=== PATIENT | male | born 1980 | race Caucasian/White ===

== ENCOUNTER 2016-08-16 12:36 | Emergency (ER) | payer OTHER ==
[~2016-08-16] VITALS: Ht 193 cm; Wt 100.0 kg
[2016-08-16 12:47] VITALS: BP 123/71; PULSE 73; RESP 20; O2SAT 97
[2016-08-16 13:31] LABS: BASOPHILS % (AUTO) 0.5 % (0-3); EOSINOPHILS % (AUTO) 3.8 % (0-5); MONOCYTES % (AUTO) 13.5 % (4-12); Mean Corpuscular Hemoglobin 27.3 pg (27.0-35.0); Mean Corpuscular Volume 80.3 fL (81-100); NEUTROPHILS % (AUTO) 63.4 % (40-74); Platelet Count 194 bil/L (150-400)
[2016-08-16 13:51] LABS: Magnesium 1.9 mg/dL (1.6-2.6)
[2016-08-16 15:12] VITALS: BP 118/70; PULSE 72; RESP 20; O2SAT 97
--- NOTE | 2016-08-16 15:15 | ED.REPORT ---
HPI-Abd Pain M Under 40 Date of Service Aug 16, 2016 ED Provider: Angelo Lorenz MD Aden is an otherwise healthy 35-year-old male presenting with a chief complaint of stomach pain. He reports a one-year history of intermittent pain in his epigastric region that radiates into his back and chest. He describes the pain as twisting and severe. Pain typically occurs 1-2 hours after eating but sometimes later. He also reports that the pain has awoken him from sleep at night. Admits chewing tobacco and swallowing spit. Denies vomiting, hematemesis, diarrhea, hematochezia, melena, cardiac chest pain, palpitations or difficulty breathing. Nursing Notes Stated Complaint: STOMACH PAIN Chief Complaint: Male Abdominal Pain Nursing Notes Reviewed: Yes Allergies: Coded Allergies: No Known Allergies (Unverified , 08/16/16) Scheduled Esomeprazole Magnesium (Nexium) 20 Mg Capsule.dr 20 MG PO DAILY General Time Seen by MD: 15:13 Chief Complaint Abdominal pain Risk Factors CAD Risk Stratification No Amphetamine, No Cocaine, No Diabetes mellitus, No Family history, No Hyperlipidemia, No Hypertension, No Known CAD, No Smoking No risk factors Past Medical History Past Medical History Notes: Denies Review of Systems Review of Systems Note: Negative unless stated otherwise in history of present illness Physical Exam General: Extremely well appearing, well developed, well nourished, no acute distress. Head: Atraumatic, normocephalic. Eyes: No scleral icterus or injection. No discharge. Vision grossly intact. ENT: Voice clear, hearing grossly intact. Respiratory: Regular rate and rhythm. No respiratory distress. No increased work of breathing, speaks in complete sentences. Cardiovascular: Regular rate and rhythm, without murmur, gallop or rub. No pedal edema. Gastrointestinal: Abdomen flat and non-tender without guarding or rebound. Bowel sounds hypoactive. Skin: Warm and dry. Neurological: Grossly nonfocal. Psychological: Alert and oriented. Speech appropriate, linear and logical. Behavior appropriate. Initial Vital Signs Vital Signs (First) Date Time Temp Pulse Resp B/P Pulse Ox O2 Delivery O2 Flow Rate FiO2 08/16/16 12:47 36.4 73 20 123/71 97 Room Air Initial VS: Reviewed, Vital signs normal Interpretation & Diagnostics Lab Results Interpretation Result Diagram: 08/16/16 1310 08/16/16 1310 Test 08/16/16 13:10 08/16/16 16:36 White Blood Count 4.0th/mm3 (3.8-10.1) Red Blood Count 5.39mil/mm3 (4.40-5.80) Hemoglobin 14.7g/dL (13.8-17.2) Hematocrit 43.3% (41.0-50.0) Mean Corpuscular Volume 80.3fL (81-100) Mean Corpuscular Hemoglobin 27.3pg (27.0-35.0) Mean Corpuscular Hemoglobin Concent 33.9% (32.0-37.0) Red Cell Distribution Width 13.8% (12.3-15.4) Platelet Count 194bil/L (150-400) Neutrophils (%) (Auto) 63.4% (40-74) Lymphocytes (%) (Auto) 18.3% (14-46) Monocytes (%) (Auto) 13.5% (4-12) Eosinophils (%) (Auto) 3.8% (0-5) Basophils (%) (Auto) 0.5% (0-3) Sodium Level 138mEq/L (134-144) Potassium Level 4.3mEq/L (3.5-5.2) Chloride Level 100mEq/L (97-108) Carbon Dioxide Level 27mmol/L (18-29) Blood Urea Nitrogen 15mg/dL (6-20) Creatinine 0.84mg/dL (0.76-1.27) Estimat Glomerular Filtration Rate 112mL/min (>59) Glucose Level 104mg/dL (60-99) Calcium Level 9.1mg/dL (8.5-10.1) Magnesium Level 1.9mg/dL (1.6-2.6) Total Bilirubin 0.5mg/dL (0.0-1.2) Aspartate Amino Transf (AST/SGOT) 26U/L (0-50) Alanine Aminotransferase (ALT/SGPT) 33U/L (0-44) Alkaline Phosphatase 99U/L (25-150) Total Protein 6.9g/dL (6.4-8.4) Albumin 4.3g/dL (3.4-5.0) Lipase 28U/L (13-60) Hold Blanco Top Tube Received (Received) Hold Urine Received (Received) Re-Eval/Medical Decision Med Decision/Clinical Course Otherwise healthy 35-year-old male presents with a long history of intermittent epigastric pain. He states that for the last year so it has occurred roughly weekly per describes the pain as twisting which radiates through to his back and up into his chest. It tends to happen within 1-2 hours of eating typically. He reports it has been more common in the last week. Urinalysis, CBC and CMP are essentially normal. Physical is benign with no abdominal tenderness. I think is unlikely this is caused by cholecystitis, pancreatitis, bleeding ulcer, diverticulitis. Review of risk factors leads me to believe cardiac etiology is extremely unlikely. I think this is most likely an ulcer, and provided a referral to gastroenterology as well as a prescription for a PPI. Advised Tums for flareups. Provided return precautions. Discussed this with the patient who understands and is comfortable with the plan Patient Discharge & Departure Primary Impression: Epigastric pain Disposition: Home Discharge Condition All VS Reviewed: Yes Condition: Stable Patient Instructions: Peptic Ulcer (ED) Additional Instructions: Evaluation in the emergency department for stomach pain. History and physical along with blood tests and urinalysis are reassuring that this is unlikely to be a dangerous condition such as a bleeding ulcer, cholecystitis, pancreatitis or heart condition. At this point I am suspicious that this may be an ulcer. I will refer you to predatory animal exterminator for further assessment. In the meantime I will also prescribe Nexium to be taken once a day. This should reduce the acid in your stomach and reduce the severity of her flareups. Recommend Tums for when you have flareups. Contacte the predatory animal exterminator tomorrow to arrange follow-up in the next week or so. Return to emergency department for new or worsening symptoms including black/tarry stools, vomiting blood, increasing pain. Referrals: Janusz Leal MD EDSupervising Provider for APC: Angelo Lorenz MD Attending Statement Attending attestation: I saw this patient in conjunction with Sam Medley PA-C. I agree with the workup, evaluation, treatment and disposition. Angelo Lorenz MD copies to: Jayson Bae MD; Janusz Leal MD, Beck O MD Aug 16, 2016 15:15 Sam Medley PA-C Aug 16, 2016 17:03
[2016-08-16] MEDS ORDERED: ESOM20CA28 PO (17:05)
[2016-08-16 17:29] VITALS: BP 114/75; PULSE 91; RESP 16; O2SAT 98
[2016-09-16] MEDS ORDERED: SERT20OR6 PO (16:44)
[2016-11-03] MEDS ORDERED: SERT50TA9 PO (16:56)
== END 2016-08-16 17:30 | disposition home or self-care (01) ==
LOC: SED 12:36
DX: R10.13 Epigastric pain (principal); F17.220 Nicotine dependence, chewing tobacco, uncomplicated

== ENCOUNTER 2016-09-17 09:08 | Day surgery (SDC) | payer OTHER ==
[~2016-09-17] VITALS: Ht 193 cm; Wt 100.0 kg
[~2016-09-17 09:08] MED LIST: 0.9% Sodium Chloride 1,000 ML IV SCH; ESOM20CA28 PO; SERT20OR6 PO; Sodium Chloride LOK Flush 10 mL Syringe IV PRN; fentaNYL-PF 50 mCg/mL 2 mL Inj IVPUSH PRN
[2016-09-17 09:40] VITALS: BP 122/72; PULSE 63; RESP 14; O2SAT 97
[2016-09-17 10:34] VITALS: BP 109/68; PULSE 63; RESP 14; O2SAT 96
[2016-09-17 10:48] VITALS: BP 105/66; PULSE 65; RESP 16; O2SAT 98
[2016-09-17 10:57] VITALS: BP 118/81; PULSE 64; RESP 16; O2SAT 100
--- NOTE | 2016-09-17 16:47 | ENDO ---
[address] [address] ENDOSCOPY PROCEDURE PATIENT: KIMBERLY WING : 1980 MR#: [id number] ADMIT: 09/17/2016 JOB ID: [id number] PROCEDURE: Esophagogastroduodenoscopy. INDICATION: Epigastric pain. The patient's ASA classification is I. Mallampati score is I. MEDICATIONS: Versed 5 mg, fentanyl 100 mcg. INSTRUMENT USED: GIF-H190. PROCEDURE DETAILS: After informed consent was obtained, the patient was brought to the GI suite, where he was placed on oxygen via nasal cannula and monitored with continuous pulse oximeter, telemetry, and blood pressure monitoring. A time-out was performed. Then, he was placed in a left lateral decubitus position and medications were administered for sedation. A bite block was placed. The standard EGD scope was inserted through the bite block and advanced under direct visualization to second portion of the duodenum without difficulty. FINDINGS: 1. Normal-appearing duodenal bulb, first and second portion. Multiple random biopsies were obtained. 2. Normal-appearing pylorus, antrum, and gastric body. 3. Retroflexed views in the gastric body revealed a normal-appearing cardia and fundus. 4. Multiple random biopsies were obtained throughout the antrum and body of stomach. 5. Normal-appearing GE junction with a regular Z-line at 47 cm. 6. Normal-appearing esophagus. IMPRESSION: Normal esophagogastroduodenoscopy exam to second portion of duodenum. No findings to explain patient's epigastric pain. RECOMMENDATIONS: 1. Ultrasound of the abdomen versus cross-sectional imaging. 2. Recommend continuing empiric PPI or an H2 amara daily. COMPLICATIONS: None. ESTIMATED BLOOD LOSS: Less than 5 mL.
--- NOTE | 2016-09-20 16:04 | PATH ---
SURGICAL PATHOLOGY Attending Physician:Saran Brown CASE STATUS: Signed Out PATIENT NAME: KIMBERLY WING PID: [id number] : 1980 DATE COLLECTED:09/17/2016 17:11 SPECIMEN: 1: Duodenum, Biopsy 2: Stomach, Polyp, Biopsy CLINICAL HISTORY: 1). DUODENAL BX 2). GASTRIC BX FINAL DIAGNOSIS: 1.DUODENUM, BIOPSY: DUODENAL MUCOSA WITH NO DIAGNOSTIC ABNORMALITY. Negative for active inflammation, features of sprue, dysplasia, and malignancy. 2.STOMACH, BIOPSIES: ANTRAL AND BODY-TYPE MUCOSA WITH NO DIAGNOSTIC ABNORMALITY. Negative for Helicobacter organisms. Negative for intestinal metaplasia. Negative for dysplasia and malignancy. ICD10 CODE R10.9 GROSS DESCRIPTION: Received are two formalin-filled containers, both labeled with the patient' s name: 1. Received in formalin, labeled with the patient' s name and "1. Duodenum BX", are three fragments of collado, soft tissue ranging in size from 0.1 x 0.1 x 0.1 cm to 0.2 x 0.1 x 0.1 cm. All fragments are totally submitted in cassette 1A. 2. Received in formalin, labeled with the patient' s name and "2. Gastric BX", are three fragments of collado, soft tissue ranging in size from 0.1 x 0.1 x 0.1 cm to 0.3 x 0.2 x 0.2 cm. All fragments are totally submitted in cassette 2A. ([id number]) MICRO DESCRIPTION: See diagnosis. ICD-9 CODES: CPT CODES: 1: 95872 2: 20311 Electronically Signed Out Marika Michel MD [facility] [address], [place] [address] Technical component performed at [facility], [address], [place], [address]
[2016-11-03] MEDS ORDERED: SERT50TA9 PO (16:56)
== END 2016-09-17 23:59 | disposition home or self-care (01) ==
LOC: END 09:08
PROVIDERS: ATTEND Internal Medicine Gastroenterology
DX: K22.4 Dyskinesia of esophagus (principal); R10.13 Epigastric pain; F17.220 Nicotine dependence, chewing tobacco, uncomplicated
CPT/HCPCS: 43239; G0500; J7030

== ENCOUNTER 2016-11-08 06:58 | Day surgery (SDC) | payer OTHER ==
[~2016-11-08] VITALS: Ht 193 cm; Wt 97.5 kg
[2016-11-08] VITALS (9 sets, daily range): BP systolic 121–133; BP diastolic 66–84; PULSE 54–74; RESP 13–18; O2SAT 95–100
[~2016-11-08 06:58] MED LIST changes: -0.9% Sodium Chloride 1,000 ML IV SCH; +CeFAZolin Inj 2 GM in IV Premix 1 EACH IV ONE; -ESOM20CA28 PO; +Heparin 5,000 Unit/mL Inj SUBQ ONE; +Lactated Ringer's 1,000 ML IV ONE; +Lactated Ringer's 1,000 ML IV SCH; -SERT20OR6 PO; +SERT50TA9 PO; -Sodium Chloride LOK Flush 10 mL Syringe IV PRN; -fentaNYL-PF 50 mCg/mL 2 mL Inj IVPUSH PRN
[2016-11-08] MEDS ORDERED: Glycopyrrolate 0.2 MG/ML 1mL Inj ONE (06:59)
[2016-11-08] MEDS ORDERED: Dexamethasone 4 mg/mL Inj ONE (06:59)
[2016-11-08] MEDS ORDERED: Neostigmine 1 mg/mL 10 mL Inj ONE (06:59)
[2016-11-08] MEDS ORDERED: Ondansetron 2 mg/mL 2 mL Inj ONE (06:59)
[2016-11-08] MEDS ORDERED: Propofol 10,000 mCg/mL 20 mL Inj ONE (06:59)
[2016-11-08] MEDS ORDERED: fentaNYL-PF 50 mCg/mL 2 mL Inj ONE (06:59)
[2016-11-08] MEDS ORDERED: Iopamidol-300 50 mL Inj INJ ONE (08:44)
[2016-11-08] MEDS ORDERED: Bupivacaine-MPF 0.5% 30 mL Inj INJ ONE (08:44)
[2016-11-08] MEDS ORDERED: Lactated Ringer's 1,000 ML IV SCH (08:53)
[2016-11-08] MEDS ORDERED: Lactated Ringer's 500 ML IV PRN (08:53)
[2016-11-08] MEDS ORDERED: Phenylephrine 10,000 mCg/mL Inj IVPUSH PRN (08:55)
[2016-11-08] MEDS ORDERED: EPHEDrine Sulfate 50 mg/mL Inj IVPUSH PRN (08:55)
[2016-11-08] MEDS ORDERED: fentaNYL-PF 50 mCg/mL 2 mL Inj IVPUSH PRN (08:55)
[2016-11-08] MEDS ORDERED: Atropine 0.4 mg/mL Inj IVPUSH PRN (08:55)
[2016-11-08] MEDS ORDERED: Labetalol 5 mg/mL 4 mL Inj IV PRN (08:55)
[2016-11-08] MEDS ORDERED: Ondansetron 2 mg/mL 2 mL Inj IVPUSH PRN (08:55)
[2016-11-08] MEDS ORDERED: HYDROmorphone 1 mg/mL Inj IVPUSH PRN (08:55)
--- NOTE | 2016-11-08 09:41 | PCM.HPANE ---
Patient Data Surgeon Admitting Provider: Attending Provider:Joe Mcarthur MD Primary Care Physician:Jayson Bae MD Other Provider:Jessica Barkeringham Anesthesia Reason for Visit Biliary Colic Ht/WT & BMI Height (Feet): 6 Height (Inches): 4.00 Weight (Kilograms): 97.5 Body Mass Index 26.00 Allergies Coded Allergies: No Known Allergies (Unverified , 08/16/16) Past Anesthesia History Anesthesia History: Denies:: Abnormal Airway, Anesthesia Reactions, Difficult Intubation, Fam Anesthesia Reaction, Fam Malignant Hypertherm, Malignant Hyperthermia Diabetes History Hx Diabetes?: No Current Bedside Blood Glucose: 91 MRSA MRSA: No Medications Hypertension Medication: No Home Meds Incl Beta Jairo: No Reported Medications Sertraline HCl (Sertraline)50 Mg Zmptbn89 Mg PO DAILY 30 Days Ref 0 11/03/16 Discontinued Reported Medications Sertraline HCl (Sertraline)20 Mg/1 Ml Oral.conc50 Mg PO DAILY #1 BOTTLE Ref 0 09/16/16 Discontinued Scripts Esomeprazole Magnesium (Nexium)20 Mg Capsule.dr20 Mg PO DAILY #30 CAPSULE Ref 0 Prov:Sam Medley PA-C 08/16/16 History History of ENT Problems?: No HEENT History: Denies:: Abnormal Airway Cataracts Difficult Intubation Dysphagia Glaucoma Hearing Problem Sinus Problem TMJ Denture Type: None Teeth Condition: Within Normal Limits Hx of Heart Problems?: No Cardiovascular History: Denies:: AICD Abdominal Aortic Aneurism Atrial Fibrillation Cardiac Surgery Chest Pain Congestive Heart Failure Coronary Artery Disease Edema Heart Murmur Hypertension Irregular Heartbeat Pacemaker Peripheral Vascular Rheumatic Fever Thrombophlebitis Valvular Heart Disease Hx of Respiratory Problem?: No Respiratory History: Denies:: Asthma COPD Emphysema Oxygen Administration Pneumonia Tuberculosis Use of C-PAP Machine Use of Inhalers / NEBS Hx Neurologic Problems?: No Neurological History: Denies:: CVA Dizziness Headaches Multiple Sclerosis Parkinson's Disease Seizures Hx of GI Problems?: Yes Hx of Problems?: No Genitourinary History: Denies:: Kidney Stones Urinary Tract Infection Male Hx: Denies:: Prostate Problems Skin History: Denies:: History Skin Disorders? Pressure Ulcers Hx Musculoskeletal Problems?: No Musculoskeletal History: Denies:: Back Injury Fibromyalgia Joint Replacement Myasthenia Gravis Osteoarthritis Systemic Lupus Hx of Psycho/Social Problems?: Yes Psycho Social History: Positive for:: Anxiety Hx Depression Hx Surgeries?: Yes (broken jaw ) Hx Any Other Health Problems?: Yes Other History: Denies:: Cancer Thyroid Disease History Blood Transfusions: Positive for:: Accept Blood Products? Denies:: Blood Transfusions Hx Diabetes: NoBedside Blood Glucose: 91 Hx Alcohol Use: YesAlcoholic Drinks Per Day: beer 1 monthlyHx Substance Use: NoHave You Smoked inLast 12 mo: No Stop/Bang S-Snoring: Do You Snore Loudly: No T-Tired: feel tired, fatigued: No O-Obsered: Observed not breath: No P-Blood Pressure: treated: No B- Body Mass Index > 35 kg/m2: No A- Age over 50: No N- Neck Large Circumference: No G- Gender Male: Yes RADAMES Total Score: 1 Risk Assessment Category Category 1A: Patient has history of documented sleep apnea, and HAS NOT received any narcotic, sedative or anesthesia administration during this stay. Category 1B: Patient has history of documented sleep apnea, and HAS received any narcotic , sedative or anesthesia administration during this stay Category 2: Patient has SUSPECTED Obstructive Sleep Apnea, and HAS received any narcotic , sedative or anesthesia administration during this stay. Category 3: Patient has SUSPECTED Obstructive Sleep Apnea and HAS NOT received narcotic, sedative or anesthesia administration during this stay. Category 4: Outpatient in Procedural Areas with known sleep apnea or who screen positive for High Risk via the STOP/BANG questionnaire. Exam Exam Vital Signs Vital Signs Date Time Temp Pulse Resp B/P Pulse Ox O2 Delivery O2 Flow Rate FiO2 11/08/16 07:20 35.6 60 18 122/66 97 Room Air General Appearance: Alert, Oriented X3, Cooperative, No Acute Distress HEENT/AIRWAY: MP 2, Neck Movement (FROM), Mouth Opening (3 FBMO) Lungs: Normal Air Movement Heart: Regular Rate/Rhythm Meds/Labs/Diagnostics Admission Meds Current Medications Lactated Ringer's (Lr) 1,000 ml @ 120 mls/hr Q8H20M ONCE IV Last administered on 11/08/16 07:00; Start 11/08/16 at 05:00; Stop 11/08/16 at 13:19 Gabapentin (Neurontin) 600 mg PREOP ONCE PO Last administered on 11/08/16 07: 10; Start 11/08/16 at 06:00; Stop 11/08/16 at 06:01; Status DC Celecoxib (CeleBREX) 200 mg PREOP ONCE PO Last administered on 11/08/16 07:10 ; Start 11/08/16 at 06:00; Stop 11/08/16 at 06:01; Status DC Scopolamine (Transderm-Scop Patch) 1.5 mg ONCE ONCE TOPICAL Last administered on 11/08/16 07:10; Start 11/08/16 at 05:00; Stop 11/08/16 at 05:01; Status DC Acetaminophen (Tylenol) 975 mg PREOP ONCE PO Last administered on 11/08/16 07 :10; Start 11/08/16 at 06:00; Stop 11/08/16 at 06:01; Status DC Bedside Blood Glucose: 91 Plan Impression Patient chart reviewed, patient interviewed and anesthestic plan with risks, benefits, and alternatives discussed, and informed consent obtained. NPO per Anesth. Guidelines: Yes ASA Physical Status: ASA2 Mod Systemic Disease Anesthetic Plan: GA Bene/Risks/Altern/Consents: Yes HP Complete Prior to Induction: Yes Rex Elder MD November 08, 2016 07:39
[2016-11-08] MEDS ORDERED: HYDROcodone-APAP 5-325 mg Tablet PO PRN (10:25)
--- NOTE | 2016-11-08 11:25 | DRSVH ---
PROCEDURE: X-RAY OPERATIVE CHOLANGIOGRAM ([id number]) INDICATIONS: BILIARY COLIC COMPARISON: None. FINDINGS: Biliary ducts: The surgeon injected contrast into the biliary ducts after cannulation of the cystic duct stump. Visualized intra- and extrahepatic bile ducts are normal in caliber, without strictures. No intraluminal filling defects to suggest retained ductal stones or sludge. No evidence for iatro genic ductal injury. Duodenum: Contrast flows promptly through the sphincter of Oddi into the duodenum, which appears nor mal in caliber. IMPRESSION: Normal operative cholangiogram. Dictated by: Benja Woo M.D. on 11/08/2016 at 11:23 Approved by: Benja Woo M.D. on 11/08/2016 at 11:24
--- NOTE | 2016-11-08 11:49 | PCM.ANEP1 ---
Post Anesthesia Phase 1 PACU Phase 1 Assessment Vital Signs Vital Signs Date Time Temp Pulse Resp B/P Pulse Ox O2 Delivery O2 Flow Rate FiO2 11/08/16 11:05 35.4 54 18 122/81 97 Room Air 11/08/16 10:55 57 17 125/83 97 Room Air 11/08/16 10:45 56 17 121/75 95 Room Air 11/08/16 10:30 55 14 127/83 96 Room Air 11/08/16 10:25 59 13 128/80 100 Simple Mask 10 11/08/16 10:20 55 14 123/76 100 Simple Mask 10 11/08/16 10:15 36.2 57 15 129/81 100 Simple Mask 10 11/08/16 07:20 35.6 60 18 122/66 97 Room Air Anesthetic Administered: GA Level of Alertness: Awake, talking WHITLOCK's with Equal Strength: Yes Pain: No Nausea or Vomiting: Yes (given additional anti nausea medications) Cardiovascular Function and Hy: No Oxygen Delivery: Simple Mask Lungs: Normal Air Movement Dermatome Level: Full Sensation Complications: No Follow up Care: No Rex Elder MD November 08, 2016 11:49
--- NOTE | 2016-11-08 20:44 | OP ---
[address] [address] OPERATIVE REPORT PATIENT: KIMBERLY WING : 1980 MR#: [id number] ADMIT: 11/08/2016 JOB ID: [id number] DATE OF SURGERY: 11/08/2016 PREOPERATIVE DIAGNOSIS(ES): Chronic calculous cholecystitis. POSTOPERATIVE DIAGNOSIS(ES): Chronic calculous cholecystitis. PROCEDURE: 1. Laparoscopic cholecystectomy with cholangiograms. 2. Intraoperative use and interpretation of fluoroscopy. SURGEON: Joe Mcarthur MD. RN ORTHOPAEDIC: Tino Arellano PA-C. INDICATIONS: A 35-year-old male who has a several-month history of epigastric and right upper quadrant pain radiating into his back lasting up to 3 hours occurring in the evening as well as after eating and at times wakes him up from sleep. An abdominal ultrasound demonstrated gallstones and after discussing options with the patient, it was elected to proceed with a laparoscopic cholecystectomy and cholangiograms, possible open cholecystectomy. He had no clinical history suggestive of pancreatitis or choledocholithiasis. FINDINGS: He had chronic calculous cholecystitis and normal cholangiograms. There was free flow into the duodenum without evidence of common duct stones. There was flow into the liver and the bifurcation of the right and left hepatic ducts and intrahepatic ducts were visualized. DESCRIPTION OF PROCEDURE: At the beginning and end of the operation, the SCOAP checklist was completed. A general endotracheal anesthetic was induced. Using ChloraPrep, he was prepped and draped in the usual fashion. The trocar sites were infiltrated with 0.5% plain bupivacaine. An infraumbilical incision was made. The abdominal cavity was entered. A cannula inserted. The abdomen was insufflated with CO2. Accessory 5 mm ports were placed in the upper midline and two in the right upper quadrant under direct visualization. The gallbladder fundus was elevated. The infundibulum retracted inferiorly and laterally. Adhesions to the gallbladder were taken down bluntly and using cautery. With blunt dissection, then with cautery, the cystic artery, the cystic duct at the origin of the gallbladder and the triangle of Calot were exposed. The cystic plate was released. A clip was placed at the origin of the cystic duct. Then, the gallbladder cholangiograms were obtained which were normal with results as stated above. The cholangiocatheter was removed. Two clips were placed proximally, and the cystic duct was divided. The cystic artery was divided between two clips proximally and one distally. The gallbladder was dissected away from the liver. It was placed into a specimen bag. There was some leakage of bile out of the gallbladder. One stone seemed to fall out, but I could not identify it, and I think it ended up in the specimen bag. The subhepatic and right subphrenic spaces were irrigated with saline and aspirated. The specimen bag was removed through the umbilical port. Trocars were removed without evidence of bleeding. The umbilical fascial incision was closed with running 0 Vicryl. Skin with subcuticular 4-0 Vicryl. Steri-Strips and Band-Aids were applied. Estimated blood loss 30 cc. No apparent complications. The final sponge, needle and instrument counts were announced as correct, and the patient was returned to Recovery in stable condition. Critical assistance was provided by Tino Arellano PA-C.
--- NOTE | 2016-11-09 11:25 | PATH ---
SURGICAL PATHOLOGY Attending Physician:Shari Marr CASE STATUS: Signed Out PATIENT NAME: KIMBERLY WING PID: [id number] : 1980 DATE COLLECTED:11/08/2016 15:42 SPECIMEN: Gallbladder CLINICAL HISTORY: CHOLELITHIASIS BILARY COLIC GALLBLADDER FINAL DIAGNOSIS: 1.GALLBLADDER: CHOLELITHIASIS WITH ASSOCIATED CHRONIC CHOLECYSTITIS. ICD10 CODE K80.66 GROSS DESCRIPTION: The specimen is received in one formalin filled container labeled with the patient's name, sublabeled "gallbladder" and consists of an opened 9.0 x 3.0 x 3.0 CM gallbladder. The serosa is smooth. The wall is 0.2-0.3 CM in thickness. The mucosa is a green to pink-collado in color. The lumen contains greater than 40+ green multifaceted calculi which range in size from 0.1-2.0 CM in greatest dimension. 5 sales representative raw fibers sections are submitted in one cassette. 11/08/2016 DAC MICRO DESCRIPTION: See diagnosis. ICD-9 CODES: CPT CODES: 1: 87891 Electronically Signed Out Joshua Hernandez MD [facility] [address], [place] [address] Technical component performed at [facility], [address] [place] [address] Ave[address], [place], [address]
== END 2016-11-08 23:59 | disposition home or self-care (01) ==
LOC: SAS 06:58
PROVIDERS: ATTEND Surgery
DX: K80.10 Calculus of gallbladder with chronic cholecystitis without obstruction (principal); F41.8 Other specified anxiety disorders; F17.220 Nicotine dependence, chewing tobacco, uncomplicated
CPT/HCPCS: 47563; 74300; J0690; J1100; J1644; J1885; J2405; J2710; J3010; J7120; Q9967